=== PATIENT | male | born 1975 | race Caucasian/White ===

== ENCOUNTER 2020-01-14 11:12 | Outpatient (CLI) | payer MEDICARE, MEDICAID | END 2020-01-14 23:59 | disposition home or self-care (01) | LOC: RAD 11:12 | PROVIDERS: ATTEND Physician Assistant | DX: G40.909 Epilepsy, unspecified, not intractable, without status epilepticus (principal); R94.01 Abnormal electroencephalogram [EEG] | CPT/HCPCS: 95816 ==